=== PATIENT | male | born 1955 | race Caucasian/White ===

== ENCOUNTER 2018-07-13 14:00 | Inpatient (IN) | payer BC, MEDICARE ==
[~2018-07-13] VITALS: Ht 172.7 cm; Wt 90.9 kg
[2018-07-13] MEDS ORDERED: SINGULAIR5 MG PO (14:09)
[2018-07-13] MEDS ORDERED: FAMOTIDINE10 MG PO ×2 (14:09→14:15)
[2018-07-13] MEDS ORDERED: COREG6.25 MG PO (14:10)
[2018-07-13] MEDS ORDERED: LOSARTAN POTASS25 MG PO (14:14)
[2018-07-13] MEDS ORDERED: SINGULAIR10 MG PO (14:15)
[2018-07-13] MEDS ORDERED: COREG25 MG PO (14:15)
[2018-07-13] MEDS ORDERED: NEURONTIN600 MG PO (14:16)
[2018-07-13] MEDS ORDERED: NORVASC2.5 MG PO (14:16)
[2018-07-13] MEDS ORDERED: NEURONTIN800 MG PO (14:17)
[2018-07-13] MEDS ORDERED: ROPINIROLE HCL2 MG PO (14:17)
[2018-07-13] MEDS ORDERED: ADVAIR 250/501 DISK INH (14:18)
[2018-07-13] MEDS ORDERED: CARAFATE1 G PO (14:18)
[2018-07-13 15:02] LABS: APPEARANCE CLEAR (CLEAR); BILIRUBIN NEGATIVE (NEGATIVE); COLOR YELLOW (YELLOW); GLUCOSE NEGATIVE (NEGATIVE); KETONE NEGATIVE (NEGATIVE); NITRITE NEGATIVE (NEGATIVE); PROTEIN NEGATIVE (NEGATIVE); SPECIFIC GRAVITY 1.005 (1.005-1.020); UROBILINOGEN NORMAL (NORMAL)
[2018-07-13 15:23] LABS: BASOPHILS 0.1 % (0-2); EOSINOPHILS 1.5 % (0-7); HEMATOCRIT 43.7 % (42.0-54.0); HEMOGLOBIN 15.6 g/dL (13.5-17.5); IMMATURE GRANULOCYTES 0.1 % (0-5); LYMPHOCYTES 26.2 % (15-50); MCH 33.5 pg (26.0-34.0); MCHC 35.7 g/dL (31.0-37.0); MEAN PLATELET VOLUME 9.7 fL (7.4-10.4); MONOCYTES 8.4 % (2-11); NEUTROPHILS 63.7 % (40-80); PLATELET COUNT 177 10x3/uL (130-400); RBC 4.65 10x6/uL (4.20-6.10); RDW 12.3 % (11.5-14.5); WBC 7.1 10x3/uL (4.8-10.8)
[2018-07-13 15:37] LABS: ALBUMIN 3.5 g/dL (3.4-5.0); ALKALINE PHOSPHATASE 84 U/L (46-116); ALT (SGPT) 28 U/L (10-68); AMYLASE - SERUM 95 U/L (25-115); BILIRUBIN - TOTAL 1.01 mg/dL (0.2-1.3); CALC OSMOLALITY 272 mosm/kg (275-300); CALCIUM 8.4 mg/dL (8.5-10.1); CARBON DIOXIDE 29.2 mmol/L (21.0-32.0); CHLORIDE - SERUM 102 mmol/L (98-107); GLUCOSE 139 mg/dL (74-106); LIPASE 1052 U/L (73-393); POTASSIUM - SERUM 3.7 mmol/L (3.5-5.1); PROTEIN - SERUM 7.3 g/dL (6.4-8.2); SODIUM 136 mmol/L (136-145); UREA NITROGEN 10 mg/dL (7-18); eGFR NON AFRICAN AMERICAN 80 mL/min (90-120)
[2018-07-13 16:42] VITALS: BP 168/87; BMI 30.4
[2018-07-13 17:41] VITALS: BP 168/87
[2018-07-13 22:12] VITALS: BP 116/47
[2018-07-14 04:27] VITALS: BP 123/58
[2018-07-14 09:19] VITALS: BP 133/79
[2018-07-14 12:42] VITALS: Ht 172.7 cm; Wt 90.9 kg
[2018-07-14 16:31] VITALS: BP 124/73
[2018-07-14 21:44] VITALS: BP 129/78
[2018-07-15 04:11] VITALS: BP 117/67
[2018-07-15 05:27] LABS: BASOPHILS 0.3 % (0-2); EOSINOPHILS 3.2 % (0-7); HEMATOCRIT 38.5 % (42.0-54.0); HEMOGLOBIN 13.5 g/dL (13.5-17.5); IMMATURE GRANULOCYTES 0.2 % (0-5); LYMPHOCYTES 30.3 % (15-50); MCH 33.2 pg (26.0-34.0); MCHC 35.1 g/dL (31.0-37.0); MCV 94.6 fL (80.0-100.0); MEAN PLATELET VOLUME 9.8 fL (7.4-10.4); MONOCYTES 10.6 % (2-11); NEUTROPHILS 55.4 % (40-80); PLATELET COUNT 160 10x3/uL (130-400); RBC 4.07 10x6/uL (4.20-6.10); RDW 12.2 % (11.5-14.5)
[2018-07-15 05:46] LABS: ALBUMIN 2.9 g/dL (3.4-5.0); ANION GAP 8.8 mmol/L (8-16); BILIRUBIN - TOTAL 0.84 mg/dL (0.2-1.3); CALCIUM 7.7 mg/dL (8.5-10.1); CARBON DIOXIDE 29.1 mmol/L (21.0-32.0); CREATININE - SERUM 1.1 mg/dL (0.6-1.3); POTASSIUM - SERUM 3.9 mmol/L (3.5-5.1); PROTEIN - SERUM 5.9 g/dL (6.4-8.2)
[2018-07-15 08:27] VITALS: BP 139/81
[2018-07-15] MEDS ORDERED: THIAMINE HCL50 MG PO (12:58)
[2018-07-15] MEDS ORDERED: THERAGRAN M [BK1 TAB PO (12:58)
[2018-07-15] MEDS ORDERED: ULTRAM50 MG PO (12:59)
[2018-07-15] MEDS ORDERED: ZOFRAN ODT4 MG/UDTAB PO (12:59)
[2018-07-15 13:32] VITALS: BP 153/73
== END 2018-07-15 15:07 | disposition home or self-care (01) | DRG 438 ==
LOC: D.ER 14:00 → D.EDHOLD 15:48 → D.MS 15:49
PROVIDERS: Family Medicine; Internal Medicine Nephrology
DX: K86.3 Pseudocyst of pancreas (principal); K85.20 Alcohol induced acute pancreatitis without necrosis or infection; F10.10 Alcohol abuse, uncomplicated; K86.9 Disease of pancreas, unspecified; J45.909 Unspecified asthma, uncomplicated; I10 Essential (primary) hypertension; G62.9 Polyneuropathy, unspecified; G89.29 Other chronic pain; M54.9 Dorsalgia, unspecified